=== PATIENT | male | born 1985 | race Caucasian/White ===

== ENCOUNTER 2018-02-02 00:56 | Emergency (ER) | payer OTHER ==
[2018-02-02] MEDS: AMOXICILLIN/CLAV 875 MG TAB PO (01:28)
== END 2018-02-02 01:55 | disposition home or self-care (01) ==
LOC: E/R 00:56
DX: S01.05XA Open bite of scalp, initial encounter (principal); S41.152A Open bite of left upper arm, initial encounter; S41.151A Open bite of right upper arm, initial encounter; W54.0XXA Bitten by dog, initial encounter; Y92.9 Unspecified place or not applicable; Z02.89 Encounter for other administrative examinations
CPT/HCPCS: 99283